=== PATIENT | male | born 1955 | race Caucasian/White ===

== ENCOUNTER 2017-03-03 12:42 | Observation (INO) | payer MEDICARE, OTHER ==
[2017-03-03] MEDS ORDERED: NS 0.9% 1000 ML*IV.FLUID IV ONE (12:55)
[2017-03-03] MEDS ORDERED: Albuterol/Ipratropium NEB.SOL* Albuterol 2.5 MG/Ipratropium 0.5 MG 3 ML INH ONE (12:58)
[2017-03-03] MEDS ORDERED: methylPREDNISolone 125 MG* 2 ML VIAL IV ONE (12:58)
[2017-03-03] MEDS ORDERED: Aspirin Low Dose CHEW TAB* 81 MG PO ONE (12:58)
--- NOTE | 2017-03-03 13:03 | ED ---
HPI Cardiac - HPI Summary HPI Summary: Pt here w/ B/L lower chest/rib pain w/ cough and SOB x 3 days. Has COPD, continues to smoke and reports he thinks he has pneumonia. Has had URI sx and chills recently - no adryan fever. Denies N/V but did have some diarrhea the other day. [place] lightheaded this morning but no syncope since sx have started - does admit to [facility]. Tried nebulizer breathing tx at home w/o relief this morning. Has multiple other COPD meds he takes daily. Denies h/o cardiac pathology, clots , aneurysm (was checked about 5 years ago). No trauma to chest/ab but has been exposed to multiple family members w/ URI sx. NOTE: after collecting HPI, nursing reports pt told her he fell 4 days ago and hit head. - History of Current Complaint Chief Complaint: EDChestPainROMI Stated Complaint: CHEST TIGHTNESS Time Seen by Provider: 03/03/17 12:50 Hx Obtained From: Patient, Family/Employee Representative - daughter Pain Intensity: 10 - Allergy/Home Medications Allergies/Adverse Reactions: Allergies Allergy/AdvReac Type Severity Reaction Status Date / Time No Known Allergies Allergy Verified 05/18/13 08:10 Home Medications: Home Medications Albuterol inh POWDER (NF) [Proair Respiclick] 1 puff INH Q6HR PRN 03/03/17 [ History Confirmed 03/03/17] Esomeprazole(NF) [NexIUM(NF)] 40 mg PO DAILY 03/03/17 [History Confirmed ] Fluticas/Salmet 230/21 HFA(NF) [Advair HFA 23O/21 (NF)] 2 puff INH BID 03/03/17 [History Confirmed 03/03/17] Ipratropium 0.5MG/2.5ML NEB* [Atrovent 0.5 MG NEB.ANSHU*] 0.5 mg INH Q4H PRN 03/03 [History Confirmed 03/03/17] Tiotropium CAP.INH* [Spiriva CAP.INH*] 1 cap.inh INH DAILY 03/03/17 [History Confirmed 03/03/17] PMH/Surg Hx/FS Hx/Imm Hx Previously Healthy: Yes Endocrine/Hematology History: Denies: Hx Anticoagulant Therapy, Hx Blood Disorders, Hx Diabetes, Hx Thyroid Disease, Hx Coagulopothy, Autoimmune Disease Cardiovascular History: Denies: Hx Aneurysm, Hx Angina, Hx Congestive Heart Failure, Hx Coronary Artery Disease, Hx Deep Vein Thrombosis, Hx Hypertension, Hx Myocardial Infarction, Hx Rheumatic Fever, Hx Syncope, Hx Valvular Heart Disease Respiratory History: Reports: Hx Chronic Obstructive Pulmonary Disease (COPD) - multiple meds Denies: Hx Asthma, Hx Pulmonary Embolism GI History: Reports: Hx Gastroesophageal Reflux Disease - takes PPI occasionally - Surgical History Surgery Procedure, Year, and Place: Right leg amputation, 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 Negative: Fever Eyes: Negative Negative: Photophobia, Blurred Vision, Diplopia, Drainage, Erythema Positive: Nasal Discharge Positive: Chest Pain. Negative: Palpitations Positive: Shortness Of Breath, Cough Positive: Diarrhea. Negative: Abdominal Pain, Vomiting, Nausea Positive: no symptoms reported Musculoskeletal: Other - rib pain Skin: Negative Positive: Headache - x 3 days Positive: Anxious - from pain/SOB All Other Systems Reviewed And Are Negative: Yes Physical Exam Triage Information Reviewed: Yes Vital Signs On Initial Exam: Initial Vitals Temp Pulse Resp BP Pulse Ox 99.2 F 123 26 149/92 98 03/03/17 12:46 03/03/17 12:46 03/03/17 12:46 03/03/17 12:46 03/03/17 12:46 Vital Signs Reviewed: Yes Appearance: Positive: Pain Distress - appears uncomfortable at rest but severe pain along front of chest/ab w/ coughing, Thin Skin: Positive: Warm, Dry - no erythema, no ecchymosis over affected area Head/Face: Positive: Normal Head/Face Inspection Eyes: Positive: Normal, EOMI, Conjunctiva Clear - anicteric sclera ENT: Positive: Normal ENT inspection, Hearing grossly normal, Pharynx normal - oral mucosa somewhat dry. Negative: Nasal congestion, Nasal drainage Neck: Positive: Supple, Nontender Respiratory/Lung Sounds: Positive: Decreased Breath Sounds - throughout, Fatigue - mild to moderate, Other - appears tachypnic. Negative: Rales, Rhonchi , Stridor, Wheezes, Unable to speak in full sentences - speaking full sentences Cardiovascular: Positive: Pulses are Symmetrical in both Upper and Lower Extremities - Rt LE w/ Above Knee Amputation, Tachycardia, S1, S2. Negative: Murmur, Rub, Leg Edema Left, Leg Edema Right, Other - no JVD, no bruits appreciated in ab upon auscultation Abdomen Description: Positive: Soft - lower ab, epigastrum TTP. Negative: Pulsatile Mass Bowel Sounds: Positive: Present Musculoskeletal: Positive: Normal, Strength/ROM Intact Neurological: Positive: Normal, Sensory/Motor Intact, Alert, Oriented to Person Place, Time, CN Intact II-III Psychiatric: Positive: Anxious Diagnostics - Vital Signs Vital Signs Temp Pulse Resp BP Pulse Ox 03/03/17 12:46 99.2 F 123 26 149/92 98 - Laboratory Result Diagrams: 03/03/17 12:57 03/03/17 12:57 Lab Statement: Any lab studies that have been ordered have been reviewed, and results considered in the medical decision making process. Re-Evaluation - Re-Evaluation First Eval Change: Unchanged - pt reports still in pain w/ coughing and still feels SOB - pulse ox still above 95% on RA and speaking full sentences - appears more calm since breathing tx; can auscultate distant diffuse wheezing after 1st nebulizer treatment Disposition - Course Course Of Treatment: Pt here w/ SOB, anterior chest/rib/ab pain w/ cough x 3 days and concerned about pneumonia. He has COPD and continues to smoke. Tried neb tx's at home w/o relief so came here today. He denies cardiac hx. His ECG reveals PAC's and tachycardia - aside from rate, comparable to previous ECG. CXR report and image are questionable for widened mediastinum however could be from poor image technique. 2 View was also performed and concern remains - will order CTA. COPD is also noted by flatened diaphragms B/L but pneumonia is not identified and pt's labs are w/ normal WBC, CRP and lactic acid levels. CTA reveals no aortic pathology but does report gastric wall thickening up to 3mm ( Nato Arizmendi AUTO LEASING MANAGER has discussed w/ pt and family). Pt admits to h/o GERD. He does appear to have influenza and COPD however GERD could further worsen bronchial irritation. He will be admitted d/t poor response w/ neb tx, solumderol (although this will continue to work) - still tachycardic and in pain. Also has influenza which he may not be able to manage well from a pulmonary standpoint d/t baseline COPD. Tamiflu was not intiated here but dx was discussed with Nato Arizmendi AUTO LEASING MANAGER. Also discussed possibly ordering GI meds to reduce any potential contributions from this pathology. Pt admitted in gaurded condition. NOTE: CTA also reveals a 9mm spiculated nodule in Rt upper lobe not seen on image in 2008 - f/u recommended (see CT report for details). Nato Arizmendi AUTO LEASING MANAGER has discussed w/ pt and family. - Diagnoses Provider Diagnoses: COPD exacerbation, Influenza, Nodule of right lung, Gastric wall thickening Discharge - Discharge Plan Condition: Guarded Disposition: ADMITTED TO [facility] Referrals: Axel Oconnell MD [Primary Care Provider] -
[2017-03-03 13:16] LABS: ABS Basophils 0 10^3/ul (0-0.2); ABS Eosinophils 0 10^3/ul (0-0.6); ABS Monocytes 0.9 10^3/ul (0-0.8); ABS Neutrophils 5.3 10^3/ul (1.5-7.7); ABS Nucleated RBC 0.02 10^3/ul; Eosinophil % 0.1 % (0-6); Hematocrit 46 % (42-52); Hemoglobin 15.7 g/dl (14.0-18.0); Lymphocyte % 14.3 % (25-47); Mean Corpuscular HGB Conc 34 g/dl (31-36); Mean Corpuscular Hemoglobin 31 pg (27-31); Mean Corpuscular Volume 92 fL (80-94); Mean Platelet Volume 8 um3 (7.4-10.4); Nucleated Red Blood Cells % 0.2; Platelet Count 253 10^3/ul (150-450); Red Blood Count 5.03 10^6/ul (4.0-5.4); Red Cell Distribution Width 15 % (10.5-15); White Blood Count 7.3 10^3/ul (3.5-10.8)
[2017-03-03] MEDS ORDERED: Morphine INJ* 4 MG/ML 1 ML CARPUJECT IV ONE (13:16)
[2017-03-03] MEDS ORDERED: Ondansetron INJ* 2 MG/ML VIAL IV ONE (13:16)
[2017-03-03 13:29] LABS: INR 1.02 (0.77-1.02)
[2017-03-03 13:34] LABS: EGFR Non-African American 88.9 (>60)
--- NOTE | 2017-03-03 14:05 | RAD ---
INDICATION: Fall. Intracranial injury. COMPARISON: None TECHNIQUE: Noncontrast axial source images were acquired from the skull base to the vertex. FINDINGS: Ventricles/sulci: The ventricles and cisterns are normal in size and configuration for age. Brain parenchyma: There is no focal parenchymal finding, evidence of intracranial mass, or intracranial mass effect. Intracranial hemorrhage:None. Extra-axial spaces: There are no abnormal extra axial fluid collections or evidence of extra-axial mass. Calvarium: There is no calvarial fracture or other calvarial abnormality. Scalp: There is no evidence of scalp or extracalvarial soft tissue abnormality. Paranasal sinuses/mastoid: There is bilateral ethmoid sinus disease The remaining paranasal sinuses and mastoid air cells are clear. Other: None. IMPRESSION: No acute intracranial findings . Ethmoid sinusitis
--- NOTE | 2017-03-03 14:09 | RAD ---
HISTORY: Cough, chest pain, shortness of breath COMPARISONS: April 29, 2014 VIEWS: 1: frontal portable view of the chest at 1:09 PM. The patient is obliqued to the right. FINDINGS: LINES AND TUBES: None. CARDIOMEDIASTINAL SILHOUETTE: There is widening of the upper mediastinum which may be an artifact of portable technique and positioning. The cardiomediastinal silhouette is otherwise normal for portable technique. PLEURA: The costophrenic angles are sharp. No pleural abnormalities are noted. LUNG PARENCHYMA: The lungs are clear. ABDOMEN: The upper abdomen is clear. There is no subphrenic gas. BONES AND SOFT TISSUES: No bone or soft tissue abnormalities are noted. IMPRESSION: THERE IS WIDENING OF THE UPPER MEDIASTINUM WHICH MAY BE AN ARTIFACT OF PORTABLE TECHNIQUE AND POSITIONING, OR MAY REFLECT TORTUOUS OR DILATED AORTA. OTHERWISE UNREMARKABLE PORTABLE VIEW OF THE CHEST.
[2017-03-03] MEDS ORDERED: HYDROmorphone INJ* 2 MG/ML CARPUJECT SYRINGE IV SLOW PU ONE (14:31)
[2017-03-03] MEDS ORDERED: Iohexol 350* (CONTRAST) 500 ML MDV IV ONE (14:53)
[2017-03-03] MEDS ORDERED: Albuterol 2.5 MG/3 ML NEB.SOL* (0.083%) INH PRN (15:30)
[2017-03-03] MEDS ORDERED: Ketorolac INJ* 30 MG/ML 1 ML VIAL IV PUSH ONE (15:30)
[2017-03-03] MEDS ORDERED: Ondansetron INJ* 2 MG/ML VIAL IV PRN (15:30)
[2017-03-03] MEDS ORDERED: Acetaminophen TAB* 325 MG PO PRN (15:30)
[2017-03-03] MEDS ORDERED: Acetaminoph/Cod 120/12 mg LIQ* 5 ML UDC PO PRN (15:34)
--- NOTE | 2017-03-03 15:40 | RAD ---
STUDY: CT angiography of the chest, abdomen and pelvis. INDICATION: Chest pain and shortness of breath. Suspicion of a widened mediastinum identified on same-day chest x-ray. COMPARISON: Same day chest x-ray as well as CT chest abdomen pelvis dated June 28, 2007 TECHNIQUE: Multidetector CT angiography of the chest, abdomen and pelvis were obtained from the lung apices to the ischial tuberosities after the intravenous injection of 100 mL Omnipaque 350. Reformats were created in the coronal and sagittal planes. 3-D vascular imaging was created from the source images and reviewed as well. ANGIOGRAPHIC FINDINGS: At the level of the right pulmonary artery, the ascending aorta measures 3.3 x 3.8 cm in the axial plane and the descending aorta measures 2.4 x 2.5 cm. There is no evidence of thoracic aortic dissection or pathologic aneurysmal dilatation. There is calcified atherosclerosis at the arch of the aorta. There is coarse calcification at the origin of the left vertebral artery and the left vertebral artery is diminutive relative to the right side (axial image 7). There is mild calcified atherosclerosis of the abdominal aorta but there is no pathologic aneurysmal dilatation. Contrast flows in-line to the visualized bilateral femoral arteries. The major branch vessels off of the aorta including the celiac trunk, superior mesenteric artery, bilateral renal arteries and inferior mesenteric artery are adequately patent. There is a small superior accessory right renal artery. NON ANGIOGRAPHIC FINDINGS: Chest: At the posterior aspect of the right upper lobe (image 31) there is a 1 cm pulmonary nodule. The lungs exhibit diffuse centrilobular emphysematous changes most severe at the upper lobes and apices. There is a subcarinal lymph node measuring 9 x 23 mm. There is a pretracheal lymph node measuring approximately 9 x 20 mm. The heart is grossly normal in appearance. Abdomen & Pelvis: The liver is homogenously hypodense relative to the spleen. There are no focal liver lesions. The spleen, pancreas and adrenal glands are grossly normal in appearance. The gallbladder is normal. The kidneys are normal in appearance without focal mass, calcification or signs of hydronephrosis. The renal cortices enhance promptly and symmetrically on arterial phase imaging. Evaluation of the gastrointestinal tract is limited without oral contrast. There is apparent thickening of the gastric wall measuring up to 3 cm in thickness (axial image 136 and coronal image 32 of 106). Fluid loops of small bowel measure up to 2.7 cm in diameter (image 209). The appendix is not discretely identified. There is no gross retroperitoneal or mesenteric lymphadenopathy. The pelvic viscera is normal in appearance. Multilevel degenerative changes of the thoracic and lumbar spine include loss of intervertebral disc height most severely affecting L5/S1 where there is vacuum disc phenomenon..There are no sinister bone lesions. IMPRESSION: 1. No CT evidence of pathologic aortic aneurysmal dilatation or acute dissection. 2. At the right upper lobe there is a 9 mm spiculated nodule not seen on the 2008 CT of the chest. Infectious, inflammatory or neoplastic etiologies are considered. Follow-up according to the Fleischner Society criteria is advised as recommended below. 3. Apparent thickening of the gastric wall measuring up to 3 cm in thickness. Particularly if the patient is experiencing symptoms of gastritis, further characterization could be 4. Additional chronic and degenerative changes described in the body the report. Made with endoscopy. THE RECOMMENDATIONS FOR FOLLOWUP AND MANAGEMENT OF AN INCIDENTALLY DETECTED PULMONARY NODULE GREATER THAN 8 MM IN SIZE, IN A PATIENT WITHOUT A HISTORY OF MALIGNANCY, INCLUDE FOLLOWUP CT AT 3 MONTHS, PET-CT, AND/OR BIOPSY. NOTES: SIZE = AVERAGE LENGTH AND WIDTH; HIGH RISK IS DEFINED A HISTORY OF SMOKING OR OTHER KNOW RISK FACTORS FOR LUNG CANCER; LOW RISK IS DEFINED MINIMAL OR ABSENT HISTORY OF SMOKING OR OTHER KNOWN RISK FACTORS. Pushpa, H, FRANCISCO Valente, MARLA Walker, et al (2017) "Guidelines for Management of Incidental Pulmonary Nodules Detected on CT Images: From the Fleischner Society 2017." Radiology; 284(1): 228-243. doi:10.1148/radiol.0399176436
[2017-03-03] MEDS ORDERED: Al Hydrox/Mg Hydrox/Simet LIQ* 30 ML UDC PO ONE (15:42)
[2017-03-03] MEDS ORDERED: Lidocaine 2% VISCOUS* 15 ML UDC PO ONE (15:42)
[2017-03-03 15:43] LABS: Urine Appearance Clear; Urine Blood Negative (Negative); Urine Color Straw; Urine Ketones Trace (Negative); Urine Protein Negative (Negative); Urine Specific Gravity 1.014 (1.010-1.030); Urine Urobilinogen Negative (Negative)
[2017-03-03] MEDS ORDERED: Magnesium Sulfate 2 GM IV* 2 GM/50 ML BAG IVPB ONE (16:05)
[2017-03-03] MEDS ORDERED: Potassium Chlor TAB* 20 MEQ TAB.ER PO ONE (16:05)
[2017-03-03] MEDS ORDERED: LORazepam TAB(*) 0.5 MG PO ONE (16:06)
[2017-03-03] MEDS ORDERED: Thiamine IV 100 MG, Folic Acid IV* 1 MG, Multiple Vitamin IV ADULT* 10 ML in D5NS 0.9% ... IV ONE (16:20)
[2017-03-03] MEDS: Albuterol/Ipratropium NEB.SOL* Albuterol 2.5 MG/Ipratropium 0.5 MG 3 ML INH SCH ×2 (16:57→20:02)
[2017-03-03] MEDS ORDERED: LORazepam TAB(*) 1 MG PO SCH (17:00)
[2017-03-03 17:02] LABS: EGFR Non-African American 102.4 (>60)
[2017-03-03] MEDS: predniSONE TAB* 20 MG PO SCH (18:30)
--- NOTE | 2017-03-03 19:40 | HP ---
HISTORY AND PHYSICAL: ADDENDUM: Kirill Dawson is a 61-year-old male, smoker, who presented with COPD exacerbation. I ncidentally, I saw the patient had a widened mediastinum and a CT angiogram of the chest, abdomen and pelvis was obtained. That showed 3-cm thickness of the gastric wall and 9 mm lung nodule. Gastroen terology is going to be consulted in regards to increased thickness of the stomach wall. The patient is also going to be placed on Solu-Medrol for treatment for COPD exacerbation. Please also note fabi t the patient was positive for influenza A, which is going to be treated with Tamiflu. In regards to his pulmonary nodule, the patient is advised to follow up with his primary care provider with a repe at CT in approximately 3 months. For further details of the patient's presentation and plan, please see history and physical dictated by Nato Arizmendi NP, on 03/03/17 with which I agree. [id number]/[facility] #: [id number]
--- NOTE | 2017-03-03 19:48 | HP ---
CC: Dr. Oconnell; Dr. Amos* HISTORY AND PHYSICAL: DATE OF ADMISSION: 03/03/17 PRIMARY CARE PROVIDER: Dr. Oconnell. ATTENDING PHYSICIAN WHILE IN THE HOSPITAL: Dr. Shantell Carvajal* (report dictated by Darcy Arizmendi NP). CONSULTING SENIOR HR BUSINESS PARTNER: Dr. Amos. CHIEF COMPLAINT: 1. Cough. 2. Epigastric discomfort with cough. 3. Chest discomfort with coughing. 4. Shortness of breath. HISTORY OF PRESENT ILLNESS: Mr. Dawson is a 61-year-old male patient with a history of GERD, COPD. He comes in to the ED today, says that his grandson and daughter recently were sick with similar symptoms and now he has been having issues with cough, chills, aching, not feeling well. He is feeling very fatigued. He says that he has been feeling weak and he has been progressively more short of breath. He started out with sore throat about 3 days ago and he has just not been feeling well. It has gotten to the point now that whenever he coughs, he has significant amount of pain in his epigastric area. He has pain underneath his rib cage whenever he coughs and it has been hurting to take a deep breath. He was concerned because it just was not getting any better. He was having issues with 1 episode of vomiting. He denied having any weight loss or any weight changes. No chest pain with the exception when he is coughing. He was concerned because he just was not feeling any better and he came in to the ED today. He came in, was evaluated, was found to be positive for flu. There was question of widened mediastinum. So, CTA of the chest, abdomen, and pelvis was obtained, which ultimately showed a new mass. In addition to this, also did show thickening of his gastric wall, and apparently he was flu positive. So, because of these findings, we were asked to evaluate for admission. PAST MEDICAL HISTORY: Significant for: 1. GERD. 2. COPD. PAST SURGICAL HISTORY: He has had right BKA from trauma and he has had back surgery. MEDICATIONS: The home meds include: 1. Spiriva 1 capsule inhaled daily. 2. Nexium 40 mg daily. 3. Atrovent 0.5 mg inhaled every 4 hours as needed. 4. Advair 2 puffs inhaled b.i.d. 5. Albuterol ProAir 1 puff inhaled every 6 hours as needed. ALLERGIES TO MEDICATIONS: Include no known drug allergies. FAMILY HISTORY: Both his parents passed of old age. SOCIAL HISTORY: He is a pack-a-day smoker for about 40 years. He does drink alcohol on a regular basis; he does not quantity how much. His surrogate decision maker is his . REVIEW OF SYSTEMS: There is no documented fever, but he does admit to having chills. No significant weight change. He denied having double vision. There is no ear discharge. There was rhinorrhea. There was a sore throat. There was chest pain when he coughs. There is dyspnea on exertion. He denied any abdominal pain with the exception when he is coughing, he is getting epigastric pain. There was 1 episode of nausea, no vomiting. No dysuria, no frequency. There is no seizure, no loss of consciousness. No pruritus and no skin ulcerations. Review of 14 systems was completed, all others negative. PHYSICAL EXAMINATION GENERAL: At this time, Mr. Dawson is a 61-year-old male patient. He is sitting in the ER stretcher. He does not appear to be in any acute distress. He is awake and he is alert. VITAL SIGNS: Blood pressure 103/52; initially his pulse when he came in was 120 and when he was coughing, it get up to 140; his heart rate now is within the one teens. HEENT: Head: Atraumatic, normocephalic. Eyes: EOMs are intact. Sclerae anicteric, not pale. Throat: Oral mucosa appears to be dry. No oropharyngeal erythema. NECK: Supple. LUNGS: He had wheezing noted throughout with expiratory. Equal diaphragmatic expansion. HEART: Sounds S1, S2. He is tachycardic. No murmurs, rubs, or gallops. ABDOMEN: Soft, flat, nontender. Bowel sounds are present. EXTREMITIES: Pulses were 2+ throughout. He is moving all 4 extremities with 5/ 5 strength. NEUROLOGIC: He is awake, alert, oriented x3. Tongue is midline. Hat Stock Laminating Machine Operator are equal. No gross focal deficits. SKIN: Intact. DIAGNOSTIC STUDIES/LAB DATA: , RBC of 5.03, hemoglobin 15.7, hematocrit of 36, platelet count of 253. INR 1.02, PTT of 30.9. Sodium 130, potassium 3.2, chloride 98, bicarb 24, BUN 10, creatinine of 0.87, glucose 94, lactate 1.7, calcium 8.8, mag 1.6. Total bili 0.3, AST 20, ALT 12, alk phos 69. Troponin 0.02. BNP 41. Albumin of 4. Urine pending. Serology was positive for flu. He had a chest, abdomen, pelvis CTA, which revealed impression: No CT evidence of pathologic aortic aneurysm, dilatation, or acute dissection. At the right upper lobe, there is a 9-mm spiculated nodule, not seen on the 2008 CT of the chest. Infectious, inflammatory, or neoplastic etiology is considered. Followup according to Fleischner Society criteria is advised. Apparent thickening of the gastric wall measuring up to 3 cm in thickness particularly as the patient has experienced symptoms of gastritis, further characterization could be made with an endoscopy, recommendations for followup. Incidentally detected pulmonary nodule greater than 8 mm in size in patient without history of malignancy, include followup in 3 months with PET/CT and/or biopsy. He had a brain CT obtained today, which showed no acute intracranial findings. He does have ethmoid sinusitis. Chest x-ray: Impression, widening of the upper mediastinum with maybe an artifact of the portable technique or positioning, may reflect tortuous or dilated aorta, otherwise unremarkable portable chest. EKG obtained today as well, which showed sinus tachycardia with PACs greater than 125. No ST elevations or T-wave inversions. Old medical records were reviewed. ASSESSMENT AND PLAN: Mr. Dawson is a 61-year-old male patient coming in to the ED today with multiple complaints, initially coming with upper respiratory complaints, cough, chest pain when coughing, and shortness of breath. On evaluation was found to have flu. He will be admitted under inpatient status for: 1. Chronic obstructive pulmonary disease exacerbation secondary influenza. At this point, I will put him on steroids, Tamiflu, nebs. 2. Tachycardia. It is probably secondary to the exacerbation. We will go ahead and place him on telemetry. His heart rate is trending down once his pain has been controlled. 3. Pulmonary mass. At this point, he will need followup with a CT in 3 months , which can be done with his primary, with Dr. Oconnell. At this point, I would not go for biopsy because of his respiratory status. I think that would be not the opportune time. He will need to have close followup. I did discuss this with the family and the patient. 4. Thickened abdominal wall. He does say he drinks on a fairly routine basis and he does also take aspirin daily as well and he also is a smoker. However, there is concern this could may represent a malignancy as well and I did explain to him that we probably should get an endoscopy while he is here, which if his respiratory status permits, we will do this tomorrow. I did touch base with Dr. Amos, who will evaluate the patient. We will put him on a regular diet and n.p.o. after midnight. 5. DVT prophylaxis. He is high risk. He will be placed on heparin subcu. 6. Code status. He is full code. 7. Fluids, electrolytes, and nutrition. Normal saline has been ordered. 8. EtOH abuse. We will put him on the [facility] protocol. TIME SPENT: On admission was 70 minutes, greater than half the time was spent face- to-face with the patient obtaining my history and physical, other half time was spent going over the plan of care with the patient and implementing plan of care. I did discuss the plan of care with my attending, Dr. Carvajal; she is in agreement. DARCY ARIZMENDI NP [id number]/[facility] #: [id number] [place]
[2017-03-03] MEDS: Mometasone/Formoter 200/5 MDI INH SCH (20:05)
--- NOTE | 2017-03-03 20:30 | CONS ---
CC: Dr. Oconnell* CONSULTATION REPORT: DATE OF CONSULTATION: 03/03/17 REQUESTING PHYSICIAN: Nato Airzmendi NP INDICATION: Abnormal CT appearance of stomach, thickened gastric wall. NARRATIVE: Mr. Dawson is a 61-year-old gentleman who is admitted for cough and shortness of breath to rule out flu. The patient did have a CT chest , abdomen, and pelvis, which revealed a thickened gastric wall. The patient denies any nausea or vomiting, but he does have upper abdominal pain. He states that he has been coughing incessantly for the past 3 to 4 days. He denies any black and tarry stools. No bright red blood. He did have an endoscopy with Dr. eGiger in 2009 that was normal. He does take an excessive amount of Excedrin every day. It does not appear that he had a CLOtest during his endoscopy; however, biopsies were taken, which did show mild blunting of the villi. The patient has been losing weight. He is also noted to have a lung nodule. He is being admitted for flu and possible COPD exacerbation; however, his primary team requested an endoscopy given the CT findings. PAST MEDICAL HISTORY: Significant for COPD due to smoking, history of headaches , GERD. PAST SURGICAL HISTORY: None. MEDICATIONS: Include: 1. Albuterol. 2. Nexium. 3. Advair. 4. Atrovent. 5. Spiriva. ALLERGIES: No known drug allergies. FAMILY HISTORY: Significant for congenital heart disease. REVIEW OF SYSTEMS: Twelve systems were reviewed, other than that mentioned in the HPI were unremarkable. PHYSICAL EXAM: Temperature is 99.2, blood pressure is 103/54, pulse is 121. General: Chronically ill-appearing male, in no apparent distress. Alert, oriented, pleasant, fluent. HEENT: Mucous membranes are dry without lesions, ulcers, or exudate. Neck is supple. Trachea is midline. Head is normocephalic , atraumatic. Lymph: No supraclavicular or cervical lymphadenopathy. Skin is tanned with tattoos. Lungs: He has expiratory wheezes, very coarse breath sounds. Diminished airflow. Heart: Regular rate and rhythm, but tachy. Abdomen: Positive bowel sounds, soft. Upper abdominal tenderness. No rebound. No guarding. Skin is warm and dry. DIAGNOSTIC STUDIES/LAB DATA: Labs of note, white count of 7.3, hemoglobin is 15.7, platelets of 253. INR is 1.02. Chemistry showed a sodium of 130, lactic acid is 1.7, BUN is 10, creatinine is 0.87. CT abdomen, pelvis, and chest shows a 3-cm thickened gastric wall. ASSESSMENT AND PLAN: A 61-year-old gentleman with a thickened gastric wall. It may be CT artifact. It may be due to his Excedrin. It may be due to Helicobacter pylori. It may be a malignancy. The patient did have blunted villi on his last endoscopy, biopsies in the small intestine, one needs to consider a lymphoma. At this point, he does need an upper endoscopy for further evaluation of this. Unfortunately, his lungs are not in the best shape right now. His respiratory status needs to improve prior to performing an endoscopy. [id number]/[facility] [place] #: [id number] MTDD
[2017-03-03] MEDS: HYDROmorphone INJ* 1 MG/ML CARPUJECT SYRINGE IV SLOW PU PRN (20:33)
[2017-03-03] MEDS: Omeprazole CAP* 20 MG PO SCH (20:34)
[2017-03-03] MEDS: Oseltamivir CAP* 75 MG PO SCH (20:34)
[2017-03-03] MEDS: NS 0.9% 1000 ML* 1,000 ML IV SCH (21:18)
[2017-03-03] MEDS: Heparin VIAL(*) 5000 UNITS/ML VIAL (FIVE THOUSAND) SUBCUT SCH (22:30)
[2017-03-04] MEDS: HYDROmorphone INJ* 1 MG/ML CARPUJECT SYRINGE IV SLOW PU PRN ×3 (00:28→09:51)
[2017-03-04] MEDS: Albuterol/Ipratropium NEB.SOL* Albuterol 2.5 MG/Ipratropium 0.5 MG 3 ML INH SCH ×2 (00:58→07:39)
[2017-03-04] MEDS: NS 0.9% 1000 ML* 1,000 ML IV SCH (05:31)
[2017-03-04 06:05] LABS: ABS Basophils 0 10^3/ul (0-0.2); ABS Eosinophils 0 10^3/ul (0-0.6); ABS Lymphocytes 0.6 10^3/ul (1.0-4.8); ABS Monocytes 0.5 10^3/ul (0-0.8); ABS Neutrophils 4.8 10^3/ul (1.5-7.7); ABS Nucleated RBC 0 10^3/ul; Eosinophil % 0.4 % (0-6); Hematocrit 40 % (42-52); Hemoglobin 13.5 g/dl (14.0-18.0); Lymphocyte % 10.6 % (25-47); Mean Corpuscular HGB Conc 34 g/dl (31-36); Mean Corpuscular Hemoglobin 32 pg (27-31); Mean Corpuscular Volume 93 fL (80-94); Mean Platelet Volume 8 um3 (7.4-10.4); Nucleated Red Blood Cells % 0.1; Platelet Count 209 10^3/ul (150-450); Red Cell Distribution Width 14 % (10.5-15)
[2017-03-04] MEDS: Heparin VIAL(*) 5000 UNITS/ML VIAL (FIVE THOUSAND) SUBCUT SCH (06:12)
[2017-03-04 06:52] LABS: EGFR Non-African American 150.9 (>60)
[2017-03-04 07:34] VITALS: BP 134/78
[2017-03-04] MEDS: Mometasone/Formoter 200/5 MDI INH SCH (07:40)
[2017-03-04] MEDS ORDERED: Thiamine TAB* 100 MG TAB PO SCH (09:00)
[2017-03-04] MEDS ORDERED: Folic Acid TAB* 1 MG PO SCH (09:00)
[2017-03-04] MEDS ORDERED: Multivitamins/Minerals TAB PO SCH (09:00)
[2017-03-04] MEDS ORDERED: Influenza VAC *QUAD* 2017-18* 0.5 ML SYRINGE IM ONE (09:00)
[2017-03-04] MEDS: Omeprazole CAP* 20 MG PO SCH (09:25)
[2017-03-04] MEDS: Oseltamivir CAP* 75 MG PO SCH (09:26)
[2017-03-04] MEDS: predniSONE TAB* 20 MG PO SCH (09:26)
--- NOTE | 2017-03-05 02:00 | DS ---
CC: Dr. Oconnell; Dr. Amos * DISCHARGE SUMMARY: DATE OF ADMISSION: 03/03/17 DATE OF DISCHARGE: 03/04/17 PRIMARY CARE PROVIDER: Dr. Oconnell. CONSULTING CASTING REPAIRER: Dr. Amos. DISCHARGING PROVIDER: GLORIA Harrison SUPERVISING PHYSICIAN: Dr. Regis Vann. * (DICTATED BY GLORIA HARRISON) PRIMARY DISCHARGE DIAGNOSES: 1. Chronic obstructive pulmonary disease exacerbation secondary to influenza A. 2. Pulmonary mass that requires outpatient PET scan and/or biopsy. 3. Abnormal CT finding demonstrating gastric wall thickening, requiring outpatient endoscopy to evaluate further. SECONDARY DISCHARGE DIAGNOSES: 1. Gastroesophageal reflux disease. 2. Alcoholism without evidence of acute withdrawal. DISCHARGE MEDICATIONS: 1. Albuterol inhaler 1 puff inhaled q.6 hours as needed for shortness of breath. 2. DuoNeb 1 neb inhaled q.4 hours as needed for shortness of breath or cough. 3. Nexium 40 mg p.o. daily. 4. Advair 2 puffs inhaled twice daily. 5. Guaifenesin with codeine 5 mL p.o. q.4 hours as needed for cough. 6. Hydrocodone/acetaminophen 1 tablet p.o. q.4 hours as needed for pain. 7. Tamiflu 75 mg p.o. b.i.d. for 4 additional days. 8. Prednisone at a tapering dose with instructions to take 40 mg for the next 3 days, followed by 20 mg for the next 3 days, followed by 10 mg for the following 3 days. 9. Spiriva 1 capsule inhaled daily. Medication changes: 1. P.r.n. DuoNeb. 2. Guaifenesin with codeine as needed. 3. Hydrocodone with acetaminophen as needed. 4. Tamiflu x4 days. 5. Prednisone in tapering dose. HOSPITAL IMAGIN. Chest x-ray shows widening of the upper mediastinum, which may be artifact of the portable technique and positioning or may reflects tortuously dilated aorta, otherwise unremarkable. 2. CT of the brain shows no acute findings. 3. CTA of the chest, abdomen, and pelvis shows no aortic aneurysmal dilatation or acute dissection in the right upper lobe; however, there is a 9-mm spiculated nodule, not previously seen on prior CT from 2007. Follow up recommended includes repeat CT in [address] and/or biopsy. Also noted is apparent thickening of the gastric wall measuring up to 3 cm. Chronic and degenerative changes, otherwise insignificant noted. HOSPITAL COURSE: This is a 61-year-old gentleman with COPD and alcoholism as well as GERD, who presented to the emergency department with complaints of cough , abdominal pain, and shortness of breath. The patient had been symptomatic for several days prior to his presentation. He noted that his grandchildren had been sick with the similar illness recently. His cough had been become so severe that he was having severe pain associated with this, which is ultimately prompted his emergency department visit. Initial chest x-ray is remarkable for a possible widened mediastinum and thus a followup CT was completed, which showed no aneurysmal changes or dissection, but there was an incidental finding of his right upper lobe spiculated pulmonary mass and thickening of the gastric wall. Testing for the flu was positive for influenza A and the patient was subsequently admitted to a period of observation for COPD exacerbation secondary to influenza. The patient was evaluated by tack puller machine, Dr. Amos regarding the CT findings, who agreed that upper endoscopy was indicated, but due to his current COPD exacerbation recommended waiting until his respiratory status improved. The patient was treated with systemic corticosteroids, inhaled medications, and started on Tamiflu with some improvement in his complaints of dyspnea, though he continued to have an occasional cough eliciting severe epigastric and lower chest pain. The patient demonstrated no signs of acute withdrawal during his hospitalization. No other complications. DISPOSITION AND FOLLOWUP PLAN: The patient is being discharged to home. Medication changes as outlined above. The patient requires followup with his primary care provider to review symptoms since this hospitalization, but also to schedule further imaging versus biopsy, would suggest PET scan of the incidental nodule noted on CT. In regards to the thickened gastric wall, the patient will see Dr. Amos in followup for outpatient EGD after he recovers from his acute COPD exacerbation. GLORIA HARRISON [id number]/[facility] #: [id number] [place]
== END 2017-03-04 11:02 | disposition home or self-care (01) ==
LOC: ED 12:42 → MEDTELE 15:51
PROVIDERS: ADMIT Internal Medicine; ATTEND Internal Medicine
DX: J44.0 Chronic obstructive pulmonary disease with (acute) lower respiratory infection (principal); J10.1 Influenza due to other identified influenza virus with other respiratory manifestations; R91.8 Other nonspecific abnormal finding of lung field; R93.3 Abnormal findings on diagnostic imaging of other parts of digestive tract; K21.9 Gastro-esophageal reflux disease without esophagitis; F10.20 Alcohol dependence, uncomplicated; R06.02 Shortness of breath; R05 Cough; F17.210 Nicotine dependence, cigarettes, uncomplicated; R07.89 Other chest pain; Z79.899 Other long term (current) drug therapy; R19.7 Diarrhea, unspecified; R53.83 Other fatigue; R68.83 Chills (without fever); R51 Headache; R00.0 Tachycardia, unspecified; Z23 Encounter for immunization
CPT/HCPCS: 36415; 70450; 71020; 71275; 74174; 80048; 80053; 81003; 82565; 83605; 83735; 83880; 84484; 84520; 85025; 85610; 85730; 87040; 87070; 87205; 87502; 90471; 90686; 93005; 94640; 96374; 96375; 99285; A9270-GY; G0008; G0378; J1170; J1644; J2270; J2405; J2930; J3411; J3475; J7512; Q9967

== ENCOUNTER 2017-04-06 11:40 | Day surgery (SDC) | payer MEDICARE ==
[~2017-04-06 11:40] MED LIST: Buffered Lidocaine 0.9% SYRIN* 5 ML/SYR SYRINGE INTRADERM ONE; NS 0.9% 1000 ML* 1,000 ML IV SCH; Sodium Citrate/Citric Acid* 15 ML UDC PO ONE
[2017-04-06] MEDS ORDERED: Buffered Lidocaine 0.9% SYRIN* 5 ML/SYR SYRINGE ONE (11:52)
[2017-04-06] MEDS ORDERED: Sodium Citrate/Citric Acid* 15 ML UDC ONE (11:52)
[2017-04-06] MEDS ORDERED: fentaNYL* 50 MCG/ML 2 ML VIAL (100 MCG VIAL) ONE (12:55)
[2017-04-06] MEDS ORDERED: Midazolam* 1 MG/ML 2 ML VIAL (2 MG) ONE (12:55)
[2017-04-06] MEDS ORDERED: Cisatracurium* 2 MG/ML MDV 5 ML ONE (12:56)
[2017-04-06] MEDS ORDERED: Propofol* 10 MG/ML 20 ML BTL IV PUSH ONE (12:56)
[2017-04-06] MEDS ORDERED: Dexamethasone IV* 4 MG/ML 1 ML (4 MG) ONE (12:56)
[2017-04-06] MEDS ORDERED: Lidocaine 2% PF * 5 ML VIAL ONE (12:56)
[2017-04-06] MEDS ORDERED: Levalbuterol HFA INHALER* 1 PUFF MDI ONE (13:46)
[2017-04-06] MEDS ORDERED: Esmolol* 10 MG/ML 10 ML (100 mg) ONE (14:03)
[2017-04-06] MEDS ORDERED: Levalbuterol 0.63MG/3ML NEB* UNIT OF USE INH ONE (14:37)
[2017-04-06] MEDS ORDERED: Naloxone* 0.4 MG/ML 1 ML VIAL IV PRN (14:38)
[2017-04-06] MEDS ORDERED: Ondansetron INJ* 2 MG/ML VIAL IV PRN (14:38)
[2017-04-06] MEDS ORDERED: fentaNYL* 50 MCG/ML 2 ML VIAL (100 MCG VIAL) IV PRN (14:38)
[2017-04-06 15:21] VITALS: BP 147/88
--- NOTE | 2017-04-07 01:43 | PRO ---
BRONCHOSCOPY REPORT: DATE OF PROCEDURE: 04/06/17 PROCEDURE PERFORMED: Endobronchial ultrasound-guided fine needle aspiration of station R4, station 7 and R11 lymph node. INDICATION FOR PROCEDURE: Rule out malignancy, evaluation of lymphadenopathy. ANESTHESIA: General anesthesia. ANESTHESIOLOGIST: Dr. Breaux. DESCRIPTION OF PROCEDURE: Informed consent was obtained from the patient prior to the procedure after all the risks and benefits were thoroughly explained. The patient recently found to have spiculated right upper lobe nodule and prominent R4 and station 7 lymph nodes. Informed consent was obtained from the patient prior to the procedure after all the risks and benefits were thoroughly explained. Appropriate time-out was agreed by attending staff prior to the procedure. The patient was intubated with a size 8.5 endotracheal tube. Flexible Olympus bronchoscope was inserted through the ET tube. ET tube positioning was confirmed to be about 3 cm above the level of kamlesh. Airway inspection was performed. No endobronchial lesions were noted. Minimal secretions were noted and were suctioned out. The patient noted to have only 2 subsegmental bronchi in right upper lobe. Bronchoscope was then withdrawn and EBUS bronchoscope was inserted through the ET tube. Station R4 was minimally enlarged and was sampled with 4 passes. Rapid on-site evaluation revealed adequate sample with lymphoid tissue in the third and fourth passes, no abnormal cells were noted. Station 7 was accessed with 4 passes. Adequate lymphatic tissue was seen on all 4 passes, no malignant cells were noted. R10 lymph node was significantly enlarged and was accessed with 4 passes. Rapid on- site evaluation revealed adequate lymphatic tissue. Rest of specimen was placed in CytoLyt. The patient tolerated the procedure well. The patient was extubated and seen in Recovery in optimal condition. [id number]/[facility] #: [id number] [facility]
== END 2017-04-06 15:23 | disposition home or self-care (01) ==
LOC: OR 11:40
PROVIDERS: ATTEND Internal Medicine
DX: J98.4 Other disorders of lung (principal); R59.0 Localized enlarged lymph nodes; F17.210 Nicotine dependence, cigarettes, uncomplicated; J44.9 Chronic obstructive pulmonary disease, unspecified; R07.89 Other chest pain; K21.9 Gastro-esophageal reflux disease without esophagitis
CPT/HCPCS: 88172; 88173; 88177; 88305; A9270-GY; J1100; J2250; J2704; J3010; J7614

== ENCOUNTER 2018-01-06 06:50 | Emergency (ER) | payer MEDICARE ==
[2018-01-06] MEDS ORDERED: Albuterol/Ipratropium NEB.SOL* Albuterol 2.5 MG/Ipratropium 0.5 MG 3 ML INH ONE (07:25)
[2018-01-06] MEDS ORDERED: methylPREDNISolone 125 MG* 2 ML VIAL IV ONE (07:25)
--- NOTE | 2018-01-06 07:27 | ED ---
Shortness of Breath - HPI Summary HPI Summary: Patient is a 62 y/o M w/ c/o upper back pain, SOB, productive cough, HERNANDEZ and rhinorrhea. He states that Sx onset yesterday but notes that back pain has been present for 3-4 days. Patient also reports a fever the day before yesterday. He denies chest pain and abdominal pain. PMHx of COPD and PNA. He states he smokes but notes that he has cut down. Patient has home breathing treatments. On triage , pain is rated 5/10, being at rest is reported to aggravate Sx, nothing is noted to alleviate Sx. Home medications and allergies are reviewed. - History of Current Complaint Chief Complaint: EDGeneral Time Seen by Provider: 01/06/18 07:18 Hx Obtained From: Patient Onset/Duration: Lasting Days - upper back pain 3-4 days, fever day before yesterday, all other Sx since yesterday, Still Present Timing: Constant Current Severity: Moderate - 5/10 on triage Aggrevating Factors: Other - being at rest Alleviating Factors: Nothing Associated Signs & Symptoms: Cough (Productive), Fever - Allergy/Home Medications Allergies/Adverse Reactions: Allergies Allergy/AdvReac Type Severity Reaction Status Date / Time No Known Allergies Allergy Verified 04/06/17 12:05 PMH/Surg Hx/FS Hx/Imm Hx Endocrine/Hematology History: Denies: Hx Anticoagulant Therapy, Hx Blood Disorders, Hx Diabetes, Hx Thyroid Disease Cardiovascular History: Reports: Other Cardiovascular Problems/Disorders - EKG irregular per , stress test to be on 03/25/17 Denies: Hx Aneurysm, Hx Angina, Hx Congestive Heart Failure, Hx Coronary Artery Disease, Hx Deep Vein Thrombosis, Hx Hypertension, Hx Myocardial Infarction, Hx Rheumatic Fever, Hx Syncope, Hx Valvular Heart Disease Respiratory History: Reports: Hx Chronic Obstructive Pulmonary Disease (COPD) - multiple meds, Other Respiratory Problems/Disorders - nodule in lungs, hospitalized for influenza 03/05/17 Denies: Hx Asthma, Hx Pulmonary Embolism, Hx Sleep Apnea GI History: Reports: Hx Gastroesophageal Reflux Disease - takes PPI occasionally Denies: Hx Cirrhosis, Hx Crohn's Disease, Hx Hiatal Hernia, Hx Irritable Bowel, Hx Jaundice, Hx Ulcer, Other GI Disorders - Thickening of gastric wall, Endoscopy is scheduled per History: Reports: Other Problems/Disorders - states that he pees alot Musculoskeletal History: Reports: Hx Arthritis - knuckles, Other Musculoskeletal History - 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 Herniated disc - 30 years ago. Small cyst removed from neck 25 years ago Hx Anesthesia Reactions: No Infectious Disease History: No Infectious Disease History: Denies: Hx Hepatitis, Traveled Outside the [place] in Last 30 Days - Family History Known Family History: Positive: Other - daughter w/ [place] in 's d/t congenital heart dz; father w/ aneurysm - Social History Alcohol Use: Weekly Alcohol Amount: 3-4 beers per day Hx Substance Use: No Substance Use Type: Reports: None Hx Tobacco Use: Yes Smoking Status (MU): Current Every Day Smoker Type: Cigarettes Amount Used/How Often: 1 PPD Length of Time of Smoking/Using Tobacco: 45 years Have You Smoked in the Last Year: Yes Review of Systems Positive: Fever Positive: Nasal Discharge - rhinorrhea Negative: Chest Pain Positive: Shortness Of Breath, Cough Negative: Abdominal Pain Positive: Other - upper back pain Positive: Headache All Other Systems Reviewed And Are Negative: Yes Physical Exam - Summary Physical Exam Summary: Appearance: Well appearing, no pain distress Skin: warm, dry, reflects adequate perfusion Head/face: normal Eyes: EOMI, LIA ENT: normal Neck: supple, non-tender Respiratory: bilateral wheezing Cardiovascular: RRR, pulses symmetrical Abdomen: non-tender, soft Bowel: present Musculoskeletal: strength/ROM intact; right below knee amputation Neuro: normal, sensory motor intact, A&Ox3 Triage Information Reviewed: Yes Vital Signs On Initial Exam: Initial Vitals Temp Pulse Resp BP Pulse Ox 98.9 F 57 17 133/91 99 01/06/18 06:53 01/06/18 06:53 01/06/18 06:53 01/06/18 06:53 01/06/18 06:53 Vital Signs Reviewed: Yes Diagnostics - Vital Signs Vital Signs Temp Pulse Resp BP Pulse Ox 01/06/18 06:53 98.9 F 57 17 133/91 99 - Laboratory Result Diagrams: 01/06/18 07:38 01/06/18 07:38 Lab Statement: Any lab studies that have been ordered have been reviewed, and results considered in the medical decision making process. - Radiology CXR Radiology Interpretation Completed By: Radiologist Summary of Radiographic Findings: No active cardiopulmonary disease is noted. This report was reviewed by ED physician. - EKG 0752 Cardiac Rate: Tachycardia - rate of 102 bpm EKG Rhythm: Sinus Tachycardia Ectopy: PACs Re-Evaluation - Re-Evaluation First Eval Re-Evaluation Time: 08:41 Comment: Patient is impatient as he has not received his breathing treatment yet. Patient was reassurred that respiratory therpaist would be arriving shortly. Second Eval Re-Evaluation Time: 09:07 Comment: Discussed results of labs and tests. Patient wants to go home. He will be discharged to home. Course/Dx - Course Course Of Treatment: Patient is a 62 y/o M w/ c/o upper back pain, SOB, productive cough, HERNANDEZ and rhinorrhea. He states that Sx onset yesterday but notes that back pain has been present for 3-4 days. Patient also reports a fever the day before yesterday. He denies chest pain and abdominal pain. PMHx of COPD and PNA. Physical exam shows bilateral wheezing and right BKA. Bloodwork obtained. CXR showed no active cardiopulmonary disease. EKG showed sinus tachycardia with 102 BPM and PACs. During ED course, patient received solu -medrol 125 mg IV ONCE, Duoneb, x3 neb and Zithromax 500 mg PO ONCE. 0907 - Discussed results of labs and tests. Patient wants to go home. He will be discharged to home. Dx of COPD exacerbation, bronchitis. - Diagnoses Differential Diagnosis/HQI/PQRI: Positive: Bronchitis, COPD Exacerbation, Pneumonia, Pneumothorax Provider Diagnoses: COPD exacerbation, Bronchitis Discharge - Sign-Out/Discharge Documenting (check all that apply): Patient Departure - discharge - Discharge Plan Condition: Stable Disposition: HOME Prescriptions: Azithromycin TAB* [Zithromax TAB (Z-MALIKA) 250 mg #6 tabs] 250 mg PO DAILY #4 tab predniSONE TAB* [Deltasone TAB*] 50 mg PO ONCE #4 tab Patient Education Materials: Acute Bronchitis (ED), COPD (Chronic Obstructive Pulmonary Disease) (ED) Referrals: Axel Oconnell MD [Primary Care Provider] - 3 Days Additional Instructions: RETURN TO ED FOR ANY NEW OR WORSENING SYMPTOMS. FOLLOW UP WITH PRIMARY CARE PHYSICIAN IN THREE DAYS. - Billing Disposition and Condition Condition: STABLE Disposition: Home - Attestation Statements Document Initiated by Jody: Yes Documenting Scribe: Kishore Parrish Provider For Whom Jody is Documenting (Include Credential): Lazarus Navas MD Scribe Attestation: Kishore Min , scribed for Lazarus Navas MD on 01/06/18 at 1448. Scribe Documentation Reviewed: Yes Provider Attestation: The documentation as recorded by the Kishore muniz accurately reflects the service I personally performed and the decisions made by me, Lazarus Navas MD
[2018-01-06 07:51] LABS: ABS Basophils 0.1 10^3/ul (0-0.2); ABS Eosinophils 0.1 10^3/ul (0-0.6); ABS Lymphocytes 0.9 10^3/ul (1.0-4.8); ABS Neutrophils 3.6 10^3/ul (1.5-7.7); ABS Nucleated RBC 0 10^3/ul; Eosinophil % 2.7 % (0-6); Hematocrit 46 % (42-52); Hemoglobin 15.4 g/dl (14.0-18.0); Lymphocyte % 15.3 % (25-47); Mean Corpuscular HGB Conc 34 g/dl (31-36); Mean Corpuscular Hemoglobin 31 pg (27-31); Mean Corpuscular Volume 93 fL (80-94); Mean Platelet Volume 8.1 um3 (7.4-10.4); Nucleated Red Blood Cells % 0; Platelet Count 282 10^3/ul (150-450); Red Cell Distribution Width 14 % (10.5-15); White Blood Count 5.6 10^3/ul (3.5-10.8)
--- NOTE | 2018-01-06 07:57 | RAD ---
Indication: Shortness of breath. Single frontal view of the chest performed at 0730 hours was reviewed. Comparison is made with previous exam dated March 03, 2017. No mediastinal shift is noted. Heart is of normal size and configuration. Lung bowers appear clear. Lung bowers appear hyperinflated IMPRESSION: NO ACTIVE CARDIOPULMONARY DISEASE IS NOTED.
[2018-01-06 07:59] LABS: INR 0.9 (0.77-1.02)
[2018-01-06 08:13] LABS: EGFR Non-African American 108.5 (>60)
[2018-01-06] MEDS ORDERED: Azithromycin TAB* 250 MG PO ONE (08:47)
[2018-01-06 09:16] VITALS: BP 151/88
== END 2018-01-06 09:15 | disposition home or self-care (01) ==
LOC: ED 06:50
DX: J44.1 Chronic obstructive pulmonary disease with (acute) exacerbation (principal); J40 Bronchitis, not specified as acute or chronic; R00.0 Tachycardia, unspecified; K21.9 Gastro-esophageal reflux disease without esophagitis; Z89.511 Acquired absence of right leg below knee; F17.210 Nicotine dependence, cigarettes, uncomplicated
CPT/HCPCS: 36415; 71045; 80053; 83605; 83880; 84484; 85025; 85610; 85730; 93005; 96374; 99282; A9270-GY; J2930

== ENCOUNTER 2018-05-01 17:45 | Emergency (ER) | payer MEDICARE ==
[2018-05-01 18:54] LABS: ABS Basophils 0.1 10^3/ul (0-0.2); ABS Eosinophils 0.3 10^3/ul (0-0.6); ABS Lymphocytes 1.6 10^3/ul (1.0-4.8); ABS Monocytes 0.7 10^3/ul (0-0.8); ABS Neutrophils 5.7 10^3/ul (1.5-7.7); ABS Nucleated RBC 0 10^3/ul; Eosinophil % 3.7 %; Hematocrit 42 % (42-52); Hemoglobin 14.3 g/dl (14.0-18.0); Lymphocyte % 18.8 %; Mean Corpuscular HGB Conc 34 g/dl (31-36); Mean Corpuscular Hemoglobin 31 pg (27-31); Mean Corpuscular Volume 92 fL (80-94); Mean Platelet Volume 7.9 fL (7.4-10.4); Nucleated Red Blood Cells % 0; Platelet Count 325 10^3/ul (150-450); Red Blood Count 4.62 10^6/ul (4.00-5.40); Red Cell Distribution Width 14 % (10.5-15); White Blood Count 8.4 10^3/ul (3.5-10.8)
[2018-05-01 19:06] LABS: INR 0.95 (0.77-1.02)
[2018-05-01 19:08] LABS: Albumin 3.7 g/dL (3.2-5.2); Albumin/Globulin Ratio 1.5 (1-3); BUN/Creatinine Ratio 15.5 (8-20); C Reactive Protein 42.19 mg/L (<8.01); Calcium 8.7 mg/dL (8.6-10.3); EGFR African American 135.6 (>60); EGFR Non-African American 112.1 (>60); Globulin 2.5 g/dL (2-4); Potassium 3.7 mmol/L (3.5-5.0); Total Bilirubin 0.2 mg/dL (0.2-1.0); Total Protein 6.2 g/dL (6.4-8.9)
[2018-05-01] MEDS ORDERED: Albuterol/Ipratropium NEB.SOL* Albuterol 2.5 MG/Ipratropium 0.5 MG 3 ML INH ONE (19:09)
[2018-05-01] MEDS ORDERED: NS 0.9% 1000 ML** 1,000 ML IV ONE (19:09)
[2018-05-01] MEDS ORDERED: Dexamethasone IV* 4 MG/ML 1 ML (4 MG) IV SLOW PU ONE (19:11)
--- NOTE | 2018-05-01 19:11 | ED ---
Respiratory - HPI Summary HPI Summary: Patient is a 62 y/o M presenting to ED with complaints of SOB, body aches, nausea, diarrhea, cough, fever, and chills for the past two weeks. He also reports chest pain with coughing. Cough is noted to be productive of a small amount of green phlegm. PMHx of COPD, patient has nebulizer at home, reports no relief in Sx with usage. No PMHx of HTN, HLD, PE, or DVT. 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 On triage, pain is denied, nothing is noted to aggravate/alleviate Sx. Home medications and allergies are reviewed. - History of Current Complaint Chief Complaint: EDChestPainROMI Stated Complaint: COUGH/CONGESTION/SOB Time Seen by Provider: 05/01/18 18:09 Hx Obtained From: Patient Onset/Duration: Lasting Weeks - two, Still Present Timing: Constant Current Severity: None - pain denied Pain Intensity: 0 Character: Cough (Productive) Sputum Amount: Small Sputum Color: Green Aggravating Factor(s): Nothing Alleviating Factor(s): Nothing Associated Signs and Symptoms: Fever, SOB, Chest Pain, Chest Pain with Cough, Chills - Allergy/Home Medications Allergies/Adverse Reactions: Allergies Allergy/AdvReac Type Severity Reaction Status Date / Time No Known Allergies Allergy Verified 04/06/17 12:05 Home Medications: Home Medications Albuterol inh POWDER (NF) [Proair Respiclick] 2 puff INH BID PRN 05/01/18 [ History Confirmed 05/01/18] Budesonide/Formote 80/4.5(NF) [Symbicort 80/4.5 (NF)] 2 puff INH BID 05/01/18 [ History Confirmed 05/01/18] PMH/Surg Hx/FS Hx/Imm Hx Endocrine/Hematology History: Denies: Hx Anticoagulant Therapy, Hx Blood Disorders, Hx Diabetes, Hx Thyroid Disease Cardiovascular History: Reports: Other Cardiovascular Problems/Disorders - EKG irregular per , stress test to be on 03/25/17 Denies: Hx Aneurysm, Hx Angina, Hx Congestive Heart Failure, Hx Coronary Artery Disease, Hx Deep Vein Thrombosis, Hx Hypertension, Hx Myocardial Infarction, Hx Rheumatic Fever, Hx Syncope, Hx Valvular Heart Disease Respiratory History: Reports: Hx Chronic Obstructive Pulmonary Disease (COPD) - multiple meds, Other Respiratory Problems/Disorders - nodule in lungs, hospitalized for influenza 03/05/17 Denies: Hx Asthma, Hx Pulmonary Embolism, Hx Sleep Apnea GI History: Reports: Hx Gastroesophageal Reflux Disease - takes PPI occasionally Denies: Hx Cirrhosis, Hx Crohn's Disease, Hx Hiatal Hernia, Hx Irritable Bowel, Hx Jaundice, Hx Ulcer, Other GI Disorders - Thickening of gastric wall, Endoscopy is scheduled per History: Reports: Other Problems/Disorders - states that he pees alot Musculoskeletal History: Reports: Hx Arthritis - knuckles, Other Musculoskeletal History - Right leg amputation from a compound fx,post surgery non-healing wound Denies: Hx Bursitis Sensory History: Reports: Hx Contacts or Glasses - Reading glasses Denies: Hx Hearing Aid Opthamlomology History: Reports: Hx Contacts or Glasses - Reading glasses Neurological History: Denies: Other Neuro Impairments/Disorders Psychiatric History: Reports: Hx Depression - when he lost his right leg 13 years ago - Cancer History Hx Chemotherapy: No - Surgical History Surgery Procedure, Year, and Place: Right leg amputation, 9 years-uses prosthetic [place]. Herniated disc - 30 years ago. Small cyst removed from neck 25 years ago Hx Anesthesia Reactions: No Infectious Disease History: No Infectious Disease History: Denies: Hx Hepatitis, Traveled Outside the [place] in Last 30 Days - Family History Known Family History: Positive: Other - daughter w/ MD in ' d/t congenital heart dz; father w/ aneurysm - Social History Alcohol Use: Daily Alcohol Amount: 3-4 beers per day Hx Substance Use: No Substance Use Type: Reports: None Hx Tobacco Use: Yes Smoking Status (MU): Current Every Day Smoker Type: Cigarettes Amount Used/How Often: 1 PPD Length of Time of Smoking/Using Tobacco: 45 years Have You Smoked in the Last Year: Yes Cessation Counseling: Counseled 3+Min - 10 Min Review of Systems Constitutional: Other - POSITIVE - BODY ACHES Positive: Fever, Chills Positive: Chest Pain - WITH COUGH Positive: Shortness Of Breath, Cough Positive: Diarrhea, Nausea All Other Systems Reviewed And Are Negative: Yes Physical Exam - Summary Physical Exam Summary: GENERAL: Patient is a well-developed and nourished male who is lying comfortable in the stretcher. Patient is not in any acute respiratory distress. HEAD AND FACE: Normocephalic EYES: PERRLA, EOMI x 2. EARS: Hearing grossly intact. MOUTH: Oropharynx within normal limits. NECK: Supple, trachea is midline, no adenopathy, no JVD, no carotid bruit. CHEST: Symmetric, no tenderness at palpation LUNGS: Wheezing, rhonchi bilaterally are noted. CVS: Regular rate and rhythm, S1 and S2 present, no murmurs or gallops appreciated. ABDOMEN: Soft, non-tender. Bowel sounds are normal. No abdominal abnormal pulsations. EXTREMITIES: Full ROM in all major joints, no edema, no cyanosis or clubbing. Right below knee amputation is noted. NEURO: Alert and oriented x 3. No acute neurological deficits. Speech is normal and follows commands. Triage Information Reviewed: Yes Vital Signs On Initial Exam: Initial Vitals Temp Pulse Resp BP Pulse Ox 98 F 107 22 123/73 94 05/01/18 17:49 05/01/18 17:49 05/01/18 17:49 05/01/18 17:49 05/01/18 17:49 Vital Signs Reviewed: Yes Diagnostics - Vital Signs Vital Signs Temp Pulse Resp BP Pulse Ox 05/01/18 18:30 92 17 129/93 95 05/01/18 18:00 120 15 119/87 97 05/01/18 17:49 98 F 107 22 123/73 94 - Laboratory Lab Results: Lab Results 05/01/18 05/01/18 Range/Units 18:40 18:40 WBC 8.4 (3.5-10.8) 10^3/ul RBC 4.62 (4.00-5.40) 10^6/ul Hgb 14.3 (14.0-18.0) g/dl Hct 42 (42-52) % MCV 92 (80-94) fL MCH 31 (27-31) pg MCHC 34 (31-36) g/dl RDW 14 (10.5-15) % Plt Count 325 (150-450) 10^3/ul MPV 7.9 (7.4-10.4) fL Neut % (Auto) 68.0 % Lymph % (Auto) 18.8 % [place] % (Auto) 8.6 % Eos % (Auto) 3.7 % Baso % (Auto) 0.9 % Absolute Neuts (auto) 5.7 (1.5-7.7) 10^3/ul Absolute Lymphs (auto) 1.6 (1.0-4.8) 10^3/ul Absolute Monos (auto) 0.7 (0-0.8) 10^3/ul Absolute Eos (auto) 0.3 (0-0.6) 10^3/ul Absolute Basos (auto) 0.1 (0-0.2) 10^3/ul Absolute Nucleated RBC 0 10^3/ul Nucleated RBC % 0 Lactic Acid 1.2 (0.5-2.0) mmol/L Result Diagrams: 05/01/18 18:40 05/01/18 18:40 Lab Statement: Any lab studies that have been ordered have been reviewed, and results considered in the medical decision making process. - Radiology chest x-ray Radiology Interpretation Completed By: ED Physician Summary of Radiographic Findings: No pneumonia, pending official report. - EKG 1820 Cardiac Rate: Tachycardia - rate of 115 BPM EKG Rhythm: Sinus Tachycardia Ectopy: PVCs Summary of EKG Findings: EKG showed sinus tachycardia with rate of 115 BPM, PVCs trending towards ventricular bigemy pattern. Re-Evaluation - Re-Evaluation First Eval Re-Evaluation Time: 20:20 Comment: Patient reports that he is still smoking a pack daily, has not been using albuterol, claims to use albuterol maybe once every three days. Importance of quitting smoking was discussed, he was advised that he needs to use albuterol at least 3 times daily when he is having Sx. Admission was offered , he refused, patient to be discharged to home. Disposition - Course Course Of Treatment: Patient is a 62 y/o M presenting to ED with complaints of SOB, body aches, nausea, diarrhea, cough, fever, and chills for the past two weeks. He also reports chest pain with coughing. Cough is noted to be productive of a small amount of green phlegm. PMHx of COPD, patient has nebulizer at home, reports no relief in Sx with usage. No PMHx of HTN, HLD, PE, or DVT. 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 On physical exam, wheezing, rhonci bilaterally are noted. EKG showed sinus tachycardia with rate of 115 BPM, PVCs trending towards ventricular bigemy pattern. CXR showed no PNA. Labs showed D-dimer < 200, glucose 107, lactic acid 1.2, trop 0, CRP 42.19, total protein 6.2, BNP 83. Influenza A, B was negative. During ED course, patient received fluids, robitussin Ac 100mg-10mg, 10 ml PO ED ONCE, Decadron 8 mg IV SLOW PUSH ED ONCE, Zithromax 500 mg PO ED ONCE, and duoneb 3 neb INH ED ONCE. Patient reports that he is still smoking a pack daily, has not been using albuterol, claims to use albuterol maybe once every three days. Importance of quitting smoking was discussed, he was advised that he needs to use albuterol at least 3 times daily when he is having Sx. Admission was offered, he refused, patient to be discharged to home. - Diagnoses Provider Diagnoses: COPD exacerbation Discharge - Sign-Out/Discharge Documenting (check all that apply): Patient Departure - discharge Patient Received Moderate/Deep Sedation with Procedure: No - NO PROCEDURES DONE - Discharge Plan Condition: Stable Disposition: HOME Prescriptions: Azithromycin TAB* [Zithromax TAB (Z-MALIKA) 250 mg #6 tabs] 2 tab PO .TODAY, THEN 1 DAILY #1 malika Codeine Phosphate/Guaifenesin [Codeine-Guaifen 10-100 mg/5 ml] 5 ml PO TID #120 ml MDD 3 doses predniSONE [Prednisone 20 MG TAB] 40 mg PO DAILY 4 Days #8 tablet Patient Education Materials: COPD (Chronic Obstructive Pulmonary Disease) (ED) Referrals: Axel Oconnell MD [Primary Care Provider] - 3 Days Additional Instructions: Follow up with your primary care physician in 1-3 days. RETURN TO THE EMERGENCY DEPARTMENT FOR CHANGING OR WORSENING SYMPTOMS. - Billing Disposition and Condition Condition: STABLE Disposition: Home - Attestation Statements Document Initiated by Scribe: Yes Documenting Scribe: DERRICK SELLERS Provider For Whom Jody is Documenting (Include Credential): EUN AVERY MD Scribe Attestation: DERRICK Min , scribed for EUN AVERY MD on 05/01/18 at 2131. Scribe Documentation Reviewed: Yes Provider Attestation: The documentation as recorded by the DERRICK muniz accurately reflects the service I personally performed and the decisions made by me, EUN AVERY MD Status of Scribe Document: Viewed
[2018-05-01] MEDS ORDERED: Azithromycin TAB* 250 MG PO ONE (19:13)
[2018-05-01] MEDS ORDERED: guaiFENesin/CODIEN 100MG-10MG* 5 ML UDC PO ONE ×2 (19:13→20:27)
[2018-05-01 19:39] LABS: Influenza A Molecular NEGATIVE (Negative); Influenza B Molecular NEGATIVE (Negative)
[2018-05-01 20:48] VITALS: BP 145/87
== END 2018-05-01 20:47 | disposition home or self-care (01) ==
LOC: ED 17:45
DX: J44.1 Chronic obstructive pulmonary disease with (acute) exacerbation (principal); R00.0 Tachycardia, unspecified; F17.210 Nicotine dependence, cigarettes, uncomplicated; J44.9 Chronic obstructive pulmonary disease, unspecified; F32.9 Major depressive disorder, single episode, unspecified
CPT/HCPCS: 36415; 71046; 80053; 83605; 83880; 84484; 85025; 85379; 85610; 86140; 87040; 93005; 96361; 96374; 99284; A9270-GY; J1100

== ENCOUNTER 2018-08-17 09:13 | Emergency (ER) | payer MEDICARE ==
[2018-08-17 09:22] VITALS: BP 151/70
--- NOTE | 2018-08-17 09:51 | UC ---
Hand/Wrist HPI - HPI Summary HPI Summary: Pt is 63 y/o male hx COPD with medial left elbow pain x 5-6 weeks, worse with activity. Denies weakness, numbness, tingling. Denies any known injury or fall. 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 States he has tried 1600 mg ibuprofen every 8 hours, ice, and heat all without relief of his sx. - History Of Current Complaint Chief Complaint: UCUpperExtremity Stated Complaint: LT ELLBOW PAIN Time Seen by Provider: 08/17/18 09:38 Hx Obtained From: Patient Onset/Duration: Gradual Onset Severity Initially: Moderate Severity Currently: Moderate Pain Intensity: 7 Pain Scale Used: 0-10 Numeric Character Of Pain: Aching Aggravating Factor(s): Movement, Lifting, Flexion Alleviating Factor(s): Nothing Associated Signs And Symptoms: Negative: Swelling, Redness, Bruising, Fever, Numbness/Tingling - Allergies/Home Medications Allergies/Adverse Reactions: Allergies Allergy/AdvReac Type Severity Reaction Status Date / Time No Known Allergies Allergy Verified 08/17/18 09:22 PMH/Surg Hx/FS Hx/Imm Hx Previously Healthy: No Respiratory History: COPD Other History Of: Negative For: Anticoagulant Therapy - Surgical History Surgical History: Yes Surgery Procedure, Year, and Place: Right leg amputation, 9 years-uses prosthetic [place]. Herniated disc - 30 years ago. Small cyst removed from neck 25 years ago - Family History Known Family History: Positive: Other - daughter w/ VT in 20's d/t congenital heart dz; father w/ aneurysm - Social History Occupation: Employed Full-time - [employer] Alcohol Use: Daily Alcohol Amount: 3-4 beers per day Substance Use Type: None Smoking Status (MU): Current Every Day Smoker Type: Cigarettes Amount Used/How Often: 1 PPD Length of Time of Smoking/Using Tobacco: 45 years Have You Smoked in the Last Year: Yes Household Exposure Type: Cigarettes - Immunization History Most Recent Influenza Vaccination: 03/2013 Most Recent Pneumonia Vaccination: 2012 Review of Systems All Other Systems Reviewed And Are Negative: Yes Constitutional: Negative: Fever, Chills Musculoskeletal: Positive: Arthralgia - Left elbow Physical Exam Triage Information Reviewed: Yes Appearance: Well-Appearing, No Pain Distress Vital Signs: Initial Vital Signs Temp 97.7 F 08/17/18 09:15 Pulse 67 08/17/18 09:15 Resp 17 08/17/18 09:15 BP 151/70 08/17/18 09:15 Pulse Ox 100 08/17/18 09:15 Vital Signs Reviewed: Yes Eye Exam: Normal ENT Exam: Normal ENT: Positive: Normal ENT inspection Neck exam: Normal Respiratory: Positive: Lungs clear Cardiovascular: Positive: RRR Abdomen Description: Negative: Distended Musculoskeletal: Positive: Strength Intact, ROM Intact, No Edema, Other: - 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 Tenderness with palpation to left medial epicondyle. Neurological Exam: Normal Neurological: Positive: Alert, Muscle Tone Normal Psychological Exam: Normal Skin Exam: Normal Skin: Negative: Rashes Diagnostics - Radiology Left elbow Radiology Interpretation Completed By: ED Physician Summary of Radiographic Findings: negative for fracture Hand/Wrist Course/Dx - Course Course Of Treatment: 63 y/o male works as [employer] full-time with medial left elbow pain x 5-6 weeks, consistent with medial epicondylitis. X-ray negative for fracture. Discharged with prescription for norco. To f/u with PCP and hand surgeon for further workup. Degenerative process at the epicondyle. Spencer wrap applied here. Recommend offloading with a [id number] available band. Rest is recommended. Patient was seen in conjunction with the physician community relations assistant student. - Differential Dx/Diagnosis Differential Diagnosis/HQI/PQRI: Other - tendonitis, medial epicondylitis, bursitis, sprain Provider Diagnosis: Medial epicondylitis of left elbow Discharge - Sign-Out/Discharge Documenting (check all that apply): Patient Departure All imaging exams completed and their final reports reviewed: Yes - Discharge Plan Condition: Improved Disposition: HOME Prescriptions: HYDROcodone/ACETAMIN 5-325 MG* [[place] 5-325 TAB*] 1 tab PO Q8H PRN #10 tab MDD 3 PRN Reason: more severe pain Patient Education Materials: Tennis Elbow (ED) Referrals: Axel Oconnell MD [Primary Care Provider] - Gustavo Gottlieb MD [Medical Doctor] - Additional Instructions: Use a maximum of 800 mg of ibuprofen 3 times a day. Always take with food. Use a band designed for tenderness/golf elbow as discussed. Ice the area regularly. Rest would help. childcare worker or physical therapy may help. Return if worse, new symptoms or other concerns. Orthopedics to evaluate. They may consider injection of steroid in the area. - Billing Disposition and Condition Condition: IMPROVED Disposition: Home - Attestation Statements Document Initiated by Flavio: Yes Documenting Scribe: ELIZABETH Schroeder Provider For Whom Flavio is Documenting (Include Credential): Dr. Chao Scribe Attestation: Jennifer Min PA-S, scribed for Dr. Chao on 08/17/18 at 1409. Scribe Documentation Reviewed: Yes Provider Attestation: The documentation as recorded by the flavio, ELIZABETH Schroeder accurately reflects the service I personally performed and the decisions made by Dr. Zhanna solorzano Status of Scribe Document: Viewed
== END 2018-08-17 10:25 | disposition home or self-care (01) ==
LOC: UCEAST 09:13
DX: M77.02 Medial epicondylitis, left elbow (principal); F17.210 Nicotine dependence, cigarettes, uncomplicated
CPT/HCPCS: 99212; G0463